=== PATIENT | female | born 1960 | race Caucasian/White ===

== ENCOUNTER 2022-02-26 07:18 | Day surgery (SDC) | payer MEDICAID ==
[~2022-02-26] VITALS: Ht 157.5 cm; Wt 68.0 kg
[2022-02-26] MEDS: MIDAZOLAM HCL 5 MG/5 ML VIAL ONE ×2 (08:32→08:34)
[2022-02-26] MEDS: MEPERIDINE 100 MG INJ. 100 MG/ML VIAL ONE ×2 (08:32→08:34)
[2022-02-26 11:55] VITALS: BP_SYST 129
== END 2022-02-26 10:05 | disposition home or self-care (01) ==
LOC: SDS 07:18 → SMU 07:18 → SDS 10:05
PROVIDERS: ATTEND Internal Medicine Gastroenterology
DX: R10.9 Unspecified abdominal pain (principal); K29.70 Gastritis, unspecified, without bleeding; K21.00 Gastro-esophageal reflux disease with esophagitis, without bleeding; E66.01 Morbid (severe) obesity due to excess calories; I10 Essential (primary) hypertension; E78.00 Pure hypercholesterolemia, unspecified; Z87.891 Personal history of nicotine dependence; Z98.84 Bariatric surgery status; Z79.899 Other long term (current) drug therapy; Z20.822 Contact with and (suspected) exposure to COVID-19
CPT/HCPCS: 87426; 36415 ×2; 43239; 87081; 88305; 88312; 88313; 99152; G0378; J2250; J2175

== ENCOUNTER 2023-08-11 06:21 | Day surgery (SDC) | payer MEDICAID ==
[~2023-08-11] VITALS: Ht 157.5 cm; Wt 77.1 kg
[2023-08-11] MEDS ORDERED: MEPERIDINE 100 MG INJ. 100 MG/ML VIAL ONE (06:49)
[2023-08-11] MEDS ORDERED: SIMETHICONE 40 MG/0.6 ML ML ONE (06:49)
[2023-08-11] MEDS ORDERED: MIDAZOLAM HCL 5 MG/5 ML VIAL ONE (06:50)
[2023-08-11 12:45] VITALS: BP_SYST 123; PULSE 62; RESP 25
== END 2023-08-11 09:58 | disposition home or self-care (01) ==
LOC: SDS 06:21 → SMU 06:22 → SDS 09:58
PROVIDERS: ATTEND Internal Medicine Gastroenterology
DX: R10.9 Unspecified abdominal pain (principal); K63.5 Polyp of colon; K62.1 Rectal polyp; K64.9 Unspecified hemorrhoids; Z98.84 Bariatric surgery status; Z79.899 Other long term (current) drug therapy
CPT/HCPCS: 45385; 99152; 88305; 99153; G0378; J2250; J2175